=== PATIENT | male | born 1995 | race Caucasian/White ===

== ENCOUNTER 2018-02-17 15:20 | Emergency (ER) | payer SELFPAY ==
[~2018-02-17] VITALS: Ht 182.9 cm; Wt 80.1 kg
[2018-02-17 15:24] VITALS: BP 140/76; TEMP 97.9
[2018-02-17] MEDS ORDERED: NORCO 325 MG-51 TAB PO (16:13)
[2018-02-17] MEDS ORDERED: CIPRO 500MG TA500 MG PO (16:13)
[2018-02-17 16:25] VITALS: PULSE 64
== END 2018-02-17 16:25 | disposition home or self-care (01) ==
LOC: COL.ER 15:20
DX: S91.331A Puncture wound without foreign body, right foot, initial encounter (principal); F17.210 Nicotine dependence, cigarettes, uncomplicated; Z23 Encounter for immunization; W22.8XXA Striking against or struck by other objects, initial encounter